=== PATIENT | female | born 1995 | race Caucasian/White ===

== ENCOUNTER 2020-10-11 02:31 | Emergency (ER) | payer OTHER ==
[2020-10-11 03:41] LABS: HEMOGLOBIN 10.3 gm/dl (12.3-15.3); RED BLOOD COUNT 4.08 M/UL (4.00-5.10); WHITE BLOOD COUNT 7.4 K/UL (4.5-11.0)
== END 2020-10-11 04:18 | disposition home or self-care (01) ==
LOC: ER1 02:31
PROVIDERS: Emergency Medicine
DX: N93.8 Other specified abnormal uterine and vaginal bleeding (principal)
CPT/HCPCS: 84703; 85025; 99284